=== PATIENT | male | born 1975 | race Caucasian/White ===

== ENCOUNTER 2024-04-03 10:41 | Outpatient (RCR) | payer MEDICAID, SELFPAY ==
--- NOTE | 2024-04-03 11:25 | PTNOTE_ITS ---
PT OP Initial Eval Patient Information Outpatient Physical Therapy Treatment Date: 04/03/24 Visit Reasons: PAIN IN RIGHT SHOULDER Medical Diagnosis: Right Shoulder Pain Treatment Dx #1: Right Shoulder Pain Start of Care: 04/03/24 Date of Onset: 1 year ago Smoking Status Smoking Status: Never smoker Initial Assessment Subjective: Pt is a 48 y/o male reports of chronic right shoulder pain (10/20) worsening 1 year ago. Pt mentioned there was trauma to his shoulder many years ago, however, no recent imaging. Pt has limitation with lifting, chores, self care, cooking, taking care of his son, and performing recreational activities. Objective: Right Shoulder AROM: all motions are WFL with end range pain in all plane Right Shoulder MMTs: grossly 3+/5 Right Scapula MMTs: grossly 3+/5 Special Test (+) speed's (+) hawkin-nirali (+) bicep load II (+) active brand's Palpation: TTP long head of biceps Assessment: Pt demonstrate right shoulder pain possibly related to labral lesion leading to difficulty with ADLs. Pt will attempt physical therapy if pain persist Pt will be refer back to provider for further consultation Short Term and Custodial Goals 1) Increase right shoulder AROM WNL in 6 wks to be able to perform overhead motions 2) Decrease shoulder pain to 2/10 in 6 wks to be able to perform chores 3) Increase right shoulder MMTs grossly to 4/5 in 6 wks to be able to perform recreational activities 4) Increase right scapula MMTs grossly to 4-/5 in 6 wks to be able to perform lifting activities 5) Indep with HEP Treatment Plan 1) Manual Therapy 2) Therapeutic Activities 3) Therapeutic Exercises 4) Modalities (ice, heat) Frequency and Duration: 2 x wk for 6 wks Certification Dates: 04/03/24 to 07/04/24 Procedure Charges OP PT Eval Mod Complex 30 minutes: Yes
== END 2024-04-11 23:59 | disposition home or self-care (01) ==
LOC: CPTX 10:41
PROVIDERS: PCP Internal Medicine Pulmonary Disease; Referring Provider Nurse Practitioner Family; Visit Provider Nurse Practitioner Family
DX: M25.511 Pain in right shoulder (principal); G89.29 Other chronic pain
CPT/HCPCS: 97162

== ENCOUNTER 2024-04-13 08:39 | Outpatient (RCR) | payer MEDICAID, SELFPAY ==
--- NOTE | 2024-04-13 10:11 | PTNOTE_ITS ---
PT Outpatient Daily Note OP Daily Note Outpatient Physical Therapy Treatment Date: 04/13/24 Visit Reasons: PAIN IN RT SHOULDER Subjective: Pt's shoulder continues to hurt. Pt mention something is rubbing in his shoulder. Objective: Please see flow chart for list of ther ex performed Assessment: Pt demonstrate functional shoulder AROM with all exercises except with pain reported in the anterior aspect of the shoulder. No change in patient's overall symptoms post PT session. Patient upset towards the end of PT session wanting a shoulder MRI to further diagnosis. PT of record explained the process of obtaining MRI and he has to attempt physical therapy. Pt continues to be upset despite explanation and stated physical therapist is refusing service which n one of the information was express to the therapist. Pt advised to contact PCP or have PCP contact therapist of record to clarify any misinformation. Pt refused and walked out of the clinic to the hotel front desk clerk area. Plan: Continue with PT as indicated Length of Time (minutes) of Treatment: 30 Minutes Procedure Charges Therapeutic Exercise 30 minutes: Yes
--- NOTE | 2024-04-29 10:33 | PT.ODS1RPT ---
PT OP Progress/Discharge Note Date of Service: 04/29/24 Progress Note/DC Note Progress Note/Discharge Note: DC Note Patient Information Visit Reasons: PAIN IN RT SHOULDER Service Discharge Date: 04/29/24 Status Assessment: Pt has been seen for 2 visits (eval + 1 visit). Pt last treated on and no showed 04/15 appt. At this time Pt will be d/c from care due to non-compliance per attendance policy. Pt did not meet set goals in therapy; thank you for your referrals.
== END 2024-05-12 23:59 | disposition home or self-care (01) ==
LOC: CPTX 08:39
PROVIDERS: PCP Nurse Practitioner Family; Referring Provider Nurse Practitioner Family; Visit Provider Nurse Practitioner Family
DX: M25.511 Pain in right shoulder (principal); G89.29 Other chronic pain
CPT/HCPCS: 97110